=== PATIENT | male | born 1960 | race Caucasian/White ===

== ENCOUNTER 2018-03-28 19:30 | Emergency (ER) | payer BC ==
[~2018-03-28] VITALS: Ht 180.3 cm; Wt 93.4 kg
[2018-03-28 19:34] VITALS: BP 153/76; PULSE 84; RESP 18; Ht 180.3 cm; Wt 93.4 kg
[2018-03-28] MEDS ORDERED: AZIT250T PO (21:49)
[2018-03-28] MEDS ORDERED: BENZ200C68 PO (21:49)
--- NOTE | 2018-03-29 01:34 | ERD ---
ER Documentation Chief Complaint Chief Complaint cough x 1 week HPI Patient is a 57-year-old male with no significant past medical history brought in by his daughter with concerns for cough for the past 1 week which is intermittent. Symptoms moderate in severity. Patient's cough is productive of greenish mucus. No fevers, chills, or other symptoms reported at this time. ROS All systems reviewed and are negative except as per history of present illness. Medications Home Meds Active Scripts Azithromycin* (Zithromax*) 250 Mg Tablet, 250 MG PO .ZPACK DIRECTED, #6 TAB TAKE 500 MG (2 TABS) THE FIRST DAY THEN 250 MG (1 TAB) DAYS 2-5 Prov:MERLY MELENDEZ PA-C 03/28/18 Benzonatate* (Benzonatate*) 200 Mg Capsule, 200 MG PO TID PRN for COUGH, #15 CAP Prov:MERLY MELENDEZ PA-C 03/28/18 Allergies Allergies: Coded Allergies: No Known Drug Allergies (Verified Allergy, Unknown, 03/28/18) PMhx/Soc Medical and Surgical Hx: pt denies Medical Hx, pt denies Surgical Hx Hx Alcohol Use: No Hx Substance Use: No Hx Tobacco Use: No Smoking Status: Never smoker FmHx Family History: No diabetes Physical Exam Vitals Vital Signs Date Temp Pulse Resp B/P (MAP) Pulse Ox O2 O2 Flow FiO2 Time Delivery Rate 03/28/18 98.9 84 18 153/76 98 19:34 (101) Physical Exam Const: No acute distress Head: Atraumatic Eyes: Normal Conjunctiva ENT: Normal External Ears, Nose and Mouth. Neck: Full range of motion. No meningismus. Resp: Clear to auscultation bilaterally Cardio: Regular rate and rhythm, no murmurs Skin: No petechiae or rashes Ext: No cyanosis, or edema Neur: Awake and alert Psych: Normal Mood and Affect Procedures/MDM 57-year-old male presenting to the emergency department with signs and symptoms most consistent with acute bronchitis, possible bacterial etiology. Patient's lung examination is not concerning for acute emergent pathology. He will be discharged home in stable condition with prescriptions for further treatment as an outpatient. The patient agreed with the diagnosis, plan, need for follow-up, return precautions. Patient's blood pressure was elevated (>120/80) but appears stable without evidence of hypertension emergency or urgency. The patient is to follow-up and pursue outpatient monitoring and therapy with their primary care physician within 1 week and return immediately if they have any new, worsening, or concerning symptoms. Departure Diagnosis: Primary Impression: Acute bronchitis Bronchitis organism: unspecified organism Qualified Codes: J20.9 - Acute bronchitis, unspecified Condition: Fair Patient Instructions: Bronchitis, Antiobiotic Treatment (Adult) Referrals: [facility] YOU HAVE RECEIVED A MEDICAL SCREENING EXAM AND THE RESULTS INDICATE THAT YOU DO NOT HAVE A CONDITION THAT REQUIRES URGENT TREATMENT IN THE EMERGENCY DEPARTMENT. FURTHER EVALUATION AND TREATMENT OF YOUR CONDITION CAN WAIT UNTIL YOU ARE SEEN IN YOUR DOCTORS OFFICE WITHIN THE NEXT 1-2 DAYS. IT IS YOUR RESPONSIBILITY TO MAKE AN APPOINTMENT FOR FOLOW-UP CARE. IF YOU HAVE A PRIMARY DOCTOR --you should call your primary doctor and schedule an appointment IF YOU DO NOT HAVE A PRIMARY DOCTOR YOU CAN CALL OUR PHYSICIAN REFERRAL HOTLINE AT IF YOU CAN NOT AFFORD TO SEE A PHYSICIAN YOU CAN CHOSE FROM THE FOLLOWING [facility] [address] [facility]. [facility] [address] [facility] [facility] [address] [facility] [address]. [facility] [address] [facility]. [facility]. [address] Additional Instructions: Call your primary care doctor TOMORROW for an appointment during the next 1-2 days.See the doctor sooner or return here if your condition worsens before your appointment time. MERLY MELENDEZ PA-C Mar 29, 2018 01:34
== END 2018-03-28 22:34 | disposition home or self-care (01) ==
LOC: FTE 19:30
DX: J20.9 Acute bronchitis, unspecified (principal)
CPT/HCPCS: 99283